=== PATIENT | male | born 1970 | race Caucasian/White ===

== ENCOUNTER 2019-11-17 09:40 | Emergency (ER) | payer BC, OTHER ==
--- NOTE | 2019-11-17 10:33 | EDM.PDOC ---
ED HPI GENERAL MEDICAL PROBLEM - General Stated Complaint: CUT FINGER Time Seen by Provider: 11/17/19 09:40 Source of Information: Reports: Patient History Limitations: Reports: No Limitations - History of Present Illness INITIAL COMMENTS - FREE TEXT/NARRATIVE: Pt. presents to ER with complaints of laceration to his L index finger. He states that he cut it accidentally with a utility knife. Denies any numbness/tingling in distal portion of the finger. ROM is preserved. Pt. initially presented to clinic but was sent to ER. Tetanus is up to date. Onset: Today Onset Date: 11/17/19 Location: Reports: Upper Extremity, Left Severity: Mild - Related Data Allergies Allergy/AdvReac Type Severity Reaction Status Date / Time Penicillins Allergy Other Verified 04/11/14 11:56 Home Meds: Home Meds Simvastatin [Zocor] 40 mg DAILY 04/11/14 [History] ED ROS GENERAL - Review of Systems Review Of Systems: Comprehensive ROS is negative, except as noted in HPI. ED EXAM, GENERAL - Physical Exam Exam: See Below Exam Limited By: No Limitations General Appearance: Alert, WD/WN, No Apparent Distress Extremities: Other (subcentimeter superficial laceration across PIP of L index finger. No injury to the deep structures of the finger. ROM is normal. Laceration is not gaping and approximates well.) ED GENERAL MEDICAL PROCEDURES - Laceration/Wound Repair Left Dorsal Digit - 2nd (Index) Lac/wound length in cm: 0.5 Appearance: Superficial Distal NVT: Neuro & Vascular Intact Skin Prep: Chlorhexidine (Hibiciens), Saline Saline irrigation (cc's): 500 Exploration/Debridement/Repair: Wound Explored Closed with: Wound Adhesive Departure - Departure Time of Disposition: 10:33 Disposition: Home, Self-Care 01 Clinical Impression: Laceration of skin - Discharge Information Instructions: Laceration Care, Adult Referrals: Sarah Koehler MD [Primary Care Provider] - Additional Instructions: Minimize flexion of the finger for the next few days. Keep dry for 24 hours. Use splint as needed. Return if redness, swelling, or discharge from the area. - Assessment/Plan Plan: Minimize flexion of the finger for the next few days. Keep dry for 24 hours. Use splint as needed. Return if redness, swelling, or discharge from the area.
== END 2019-11-17 10:18 | disposition home or self-care (01) ==
LOC: VM.ED 09:40
DX: S61.211A Laceration without foreign body of left index finger without damage to nail, initial encounter (principal); Z88.0 Allergy status to penicillin; Z79.899 Other long term (current) drug therapy; W26.0XXA Contact with knife, initial encounter
CPT/HCPCS: 12001; 99282; 99282-GF

== ENCOUNTER 2020-06-08 07:04 | Day surgery (SDC) | payer BC ==
[2020-06-08] MEDS: Lactated Ringers 1,000 ML IV SCH (07:32)
[2020-06-08] MEDS ORDERED: fentaNYL 100 MCG/2 ML SDV ONE (07:44)
[2020-06-08] MEDS ORDERED: Propofol 200 MG/20 ML SDV ONE ×2 (07:44→10:03)
--- NOTE | 2020-06-08 13:20 | OR ---
PREOPERATIVE DIAGNOSIS: Screening colonoscopy. POSTOPERATIVE DIAGNOSES: 1. Multiple colon polyps. 2. Distal sigmoid mass concerning for malignancy. PROCEDURE PERFORMED: Total flexible colonoscopy with biopsies. ANESTHESIA: MAC anesthesia. COMPLICATIONS: None apparent. FINDINGS: 1. Transverse colon polyps x2, 2-3 mm, cold snare. 2. Sigmoid colon polyp, 3 mm, cold snare. 3. Distal sigmoid mass concerning for malignancy, multiple biopsies obtained, tattoo placed just distal to the mass. 4. Sigmoid colon polyps x2, 2 mm, cold forceps. 5. Rectal polyps x6, 2 mm, cold forceps. START TIME: 0945. CECUM TIME: 0950. STOP TIME: 1017. BOWEL PREP: [place] class 3. INDICATIONS FOR PROCEDURE: Mr. Garner is a 50-year-old male who is here for his first routine screening colonoscopy. He denies family history of colorectal cancer. He denies bloody or dark black stools. DETAILS OF PROCEDURE: After informed consent was obtained, the patient was brought to the procedure room and placed in left lateral decubitus position. MAC anesthesia was induced by Anesthesia colleagues. Colonoscope was introduced into the rectum and advanced all the way to the cecum. The terminal ileum was intubated and photographed. Colonoscope was then slowly withdrawn. No pathology was identified except for what is mentioned in the above findings section. I discussed with the patient his distal sigmoid mass and that appears suspicious for cancer. At any rate, it is certainly too large for endoscopic resection. He will need a surgery for this. I offered the operation to be done in [place], but he prefers to get it done in [place], so I will place a referral for him to see a surgeon there. PATHOLOGY: A) Colon, transverse polyp Tubular adenoma No high-grade dysplasia or malignancy identified. B) Colon, sigmoid polyp Fragmented tubular adenoma No high-grade dysplasia or malignancy identified. C) Colon, distal sigmoid mass, biopsy Invasive moderately differentiated adenocarcinoma DNA Mismatch Repair Enzyme Panel-immunohistochemistry: Retained tumor cell nuclear expression (mismatch repair proficient tumor; MMR-P) D) Colon, sigmoid polyps Hyperplastic polyps E) Colon, rectum polyps Hyperplastic polyps RECOMMENDATIONS: Patient will need staging and surgical resection. I offered to do this, but he requested to be seen by a surgeon in [place]. I placed this referral. RKM: 06/08/2020 10:43:50 MODL: 06/08/2020 11:59:18 /[id number] YVONNE
== END 2020-06-08 11:45 | disposition home or self-care (01) ==
LOC: VM.SDS 07:04
PROVIDERS: ATTEND Student in an Organized Health Care Education/Training Program
DX: Z12.11 Encounter for screening for malignant neoplasm of colon (principal); D12.3 Benign neoplasm of transverse colon; C18.7 Malignant neoplasm of sigmoid colon; D12.5 Benign neoplasm of sigmoid colon; K62.1 Rectal polyp; I10 Essential (primary) hypertension; E78.5 Hyperlipidemia, unspecified; F17.220 Nicotine dependence, chewing tobacco, uncomplicated; Z01.812 Encounter for preprocedural laboratory examination; Z20.822 Contact with and (suspected) exposure to COVID-19; Z79.899 Other long term (current) drug therapy; Z88.0 Allergy status to penicillin; Z98.890 Other specified postprocedural states
CPT/HCPCS: 00812; J2704; J3010; J7120; U0002